=== PATIENT | female | born 1990 | race Two or more races ===

== ENCOUNTER → 2023-03-18 16:08 | Outpatient (CLI) | payer OTHER | END | disposition home or self-care (01) | LOC: PRENATAL 16:08 | PROVIDERS: ATTEND Obstetrics & Gynecology Maternal & Fetal Medicine | DX: O36.80X0 Pregnancy with inconclusive fetal viability, not applicable or unspecified (principal); Z36.82 Encounter for antenatal screening for nuchal translucency; Z36.9 Encounter for antenatal screening, unspecified; Z3A.14 14 weeks gestation of pregnancy ==

== ENCOUNTER 2023-05-15 11:16 | Outpatient (CLI) | payer OTHER | END 2023-05-15 11:18 | disposition home or self-care (01) | LOC: PRENATAL 11:16 | PROVIDERS: ATTEND Obstetrics & Gynecology Maternal & Fetal Medicine | DX: O26.879 Cervical shortening, unspecified trimester (principal); Z3A.22 22 weeks gestation of pregnancy ==

== ENCOUNTER 2023-05-25 15:04 | Outpatient (CLI) | payer OTHER | END 2023-05-25 15:05 | disposition home or self-care (01) | LOC: PRENATAL 15:04 | PROVIDERS: ATTEND Obstetrics & Gynecology Maternal & Fetal Medicine | DX: O26.849 Uterine size-date discrepancy, unspecified trimester (principal); O26.879 Cervical shortening, unspecified trimester; Z3A.24 24 weeks gestation of pregnancy ==

== ENCOUNTER 2023-06-25 14:40 | Outpatient (CLI) | payer OTHER | END 2023-06-25 14:41 | disposition home or self-care (01) | LOC: PRENATAL 14:40 | PROVIDERS: ATTEND Obstetrics & Gynecology Maternal & Fetal Medicine | DX: O26.849 Uterine size-date discrepancy, unspecified trimester (principal); O26.879 Cervical shortening, unspecified trimester; Z3A.28 28 weeks gestation of pregnancy ==

== ENCOUNTER → 2023-07-28 14:55 | Outpatient (CLI) | payer OTHER ==
[~2023-07-28 14:55] MED LIST: PRENATAL TABLE1 EAC1 PO
== END | disposition home or self-care (01) ==
LOC: PRENATAL 14:55
PROVIDERS: ATTEND Obstetrics & Gynecology Maternal & Fetal Medicine
DX: O26.849 Uterine size-date discrepancy, unspecified trimester (principal); O36.8199 Decreased fetal movements, unspecified trimester, other fetus; Z3A.33 33 weeks gestation of pregnancy

== ENCOUNTER 2023-08-03 10:49 | Inpatient (IN) | payer OTHER ==
[~2023-08-03] VITALS: Ht 152.4 cm; Wt 1.8 kg
[2023-08-03] MEDS ORDERED: BETAMETHASONE ACETATE,SOD PHOS 30 MG/5 ML ML ONE ×2 (11:50→11:53)
[2023-08-03] MEDS ORDERED: MAGNESIUM SULFATE IN WATER 0.04 GM/ML IV.SOLN IV ONE (11:58)
[2023-08-03] MEDS ORDERED: PRENATAL TABLE1 EAC1 PO (12:13)
[2023-08-03 12:32] LABS: HEMATOCRIT 39.9 % (36.0-45.00); HEMOGLOBIN 13.7 g/dL (12.0-15.00); MEAN CELL VOLUME 90.3 fL (80.00-100.00); MEAN CORPUSCULAR HGB CONC 34.3 g/dl (32.0-36.0); PLATELET COUNT 134 K/uL (150-450); RED BLOOD COUNT 4.42 M/uL (4.00-6.00); RED CELL DISTRIBUTION WIDTH 15.4 % (11.5-14.5)
[2023-08-03] MEDS ORDERED: BETAMETHASONE ACETATE,SOD PHOS 30 MG/5 ML ML IM STA (12:35)
[2023-08-03 12:45] LABS: INR < 0.93; PARTIAL THROMBOPLASTIN TIME 28.3 SECONDS (22.0-34.0); PROTHROMBIN TIME 9.4 SECONDS (9.0-11.5)
[2023-08-03] MEDS ORDERED: MAGNESIUM SULFATE IN WATER 500 ML IV SCH (12:45)
[2023-08-03 12:49] LABS: ALBUMIN 2.3 gm/dL (3.4-5.0); BILIRUBIN TOTAL 0.37 mg/dL (0.3-1.2); CALCIUM 8.5 mg/dL (8.5-10.1); CREATININE SERUM 0.85 mg/dL (0.55-1.02); GFR 78.01; GLOBULINA 3.1 G/DL (2.4-3.5); POTASSIUM 3.76 mEq/L (3.5-5.1); TOTAL PROTEIN 5.4 gm/dL (6.4-8.2)
[2023-08-03 12:52] LABS: URINE APPEARANCE Cloudy; URINE BILIRRUBIN Negative (NEGATIVE); URINE BLOOD Small; URINE COLOR Yellow; URINE GLUCOSE Negative (NEGATIVE); URINE NITRATE Negative; URINE UROBILINOGEN 0.2 E.U./dl
[2023-08-03 13:01] LABS: URINE RBC 8.1 uL (0.0-20.8); URINE WBC 293.4 uL (0.0-23.2)
[2023-08-03 13:08] LABS: URINE LEUKOCYTE Small
[2023-08-03 13:24] LABS: URINE BACTERIA > 9821.5 uL (0.0-1933); URINE EPITHELIAL CELLS > 201.7 uL (0.0-38.8); URINE PROTEIN 300 (NEGATIVE)
[2023-08-03 13:26] LABS: URINE CRYSTALS FEW /HPF
[2023-08-03] MEDS ORDERED: CEFAZOLIN SODIUM 1,000 MG VIAL IV SCH (17:00)
[2023-08-03] MEDS ORDERED: LABETALOL HCL 100 MG/20 ML ML ONE (20:46)
[2023-08-03] MEDS ORDERED: ACETAMINOPHEN 500 MG GEL..CAP PO ONE (20:48)
[2023-08-03] MEDS ORDERED: ACETAMINOPHEN 500 MG GEL..CAP PO PRN (21:00)
[2023-08-03] MEDS ORDERED: LABETALOL HCL 100 MG/20 ML ML IV ONE (21:00)
[2023-08-04] MEDS ORDERED: LABETALOL HCL 100 MG/20 ML ML ONE (10:41)
[2023-08-04] MEDS ORDERED: LABETALOL HCL 100 MG/20 ML ML IV PUSH ONE (10:45)
[2023-08-04] MEDS ORDERED: OXYTOCIN 10 UNITS/ML VIAL ONE (11:18)
[2023-08-04] MEDS ORDERED: ERYTHROMYCIN BASE 1 GM TUBE OP ONE ×2 (11:18→14:30)
[2023-08-04] MEDS ORDERED: BETAMETHASONE ACETATE,SOD PHOS 30 MG/5 ML ML IM ONE (12:00)
[2023-08-04] MEDS ORDERED: PROMETHAZINE HCL 50 MG/ML AMPUL IM PRN (12:45)
[2023-08-04] MEDS ORDERED: MEPERIDINE HCL/PF 50 MG/ML VIAL IM PRN (12:45)
[2023-08-04 13:26] LABS: ABG PH 7.254 (7.35-7.45); ABG pCO2 57.5 mmHg (35-45)
[2023-08-04 13:27] LABS: ABG PO2 8.9 mmHg (80-100); BASE EXCESS -3.3 mmol/l; BICARBONATE 24.9 mmol/l (23-25); SaO2 6.3 %
[2023-08-04 13:28] LABS: Tco2 26.7 mmol/l; o2 21 %
[2023-08-04] MEDS ORDERED: OXYTOCIN 10 UNITS/ML VIAL IV ONE (14:30)
[2023-08-04] MEDS ORDERED: MAGNESIUM SULFATE IN WATER 0.04 GM/ML IV.SOLN IV ONE (14:46)
[2023-08-04] MEDS ORDERED: CEFAZOLIN SODIUM 1,000 MG VIAL ONE (16:54)
[2023-08-04 17:23] LABS: HEMATOCRIT 38.3 % (36.0-45.00); HEMOGLOBIN 13.1 g/dL (12.0-15.00); MEAN CELL VOLUME 90.4 fL (80.00-100.00); MEAN CORPUSCULAR HEMOGLOBIN 30.8 pg (27.00-32.0); MEAN CORPUSCULAR HGB CONC 34.1 g/dl (32.0-36.0); PLATELET COUNT 158 K/uL (150-450); RED BLOOD COUNT 4.24 M/uL (4.00-6.00); RED CELL DISTRIBUTION WIDTH 15.9 % (11.5-14.5)
[2023-08-05] MEDS ORDERED: PROMETHAZINE HCL 25 MG/ML AMPUL ONE (00:05)
[2023-08-05] MEDS ORDERED: OxyCODONE HCL/APAP UD (PERCOCET) PO PRN (08:00)
[2023-08-05] MEDS ORDERED: DOCUSATE SODIUM 100MG CAP PO SCH (09:00)
[2023-08-05] MEDS ORDERED: SIMETHICONE 125 MG CAPSULE PO SCH (09:00)
[2023-08-05] MEDS ORDERED: LABETALOL HCL 200 MG TABLET PO SCH (09:00)
[2023-08-05] MEDS ORDERED: PNV,CALCIUM 72/IRON/FOLIC ACID 1 TAB TABLET PO SCH (09:00)
[2023-08-05] MEDS ORDERED: LABETALOL HCL 100 MG TABLET PO ONE ×3 (12:58→13:15)
[2023-08-05] MEDS ORDERED: LABETALOL HCL 300 MG TABLET PO SCH (21:00)
== END 2023-08-07 14:56 | disposition home or self-care (01) | DRG 788 ==
LOC: OB/GYN 10:49 → LDR 10:49 → O/R 08-04 13:01 → OB/GYN 08-04 13:27 → O/R 08-04 15:43 → LDR 08-04 18:27 → OB/GYN 08-05 10:00
PROVIDERS: ADMIT Obstetrics & Gynecology; ATTEND Obstetrics & Gynecology
PROC: BY4FZZZ Ultrasonography of Third Trimester, Single Fetus (ICD-10-PCS; 2023-08-03)
PROC: 4A1HXCZ Monitoring of Products of Conception, Cardiac Rate, External Approach (ICD-10-PCS; 2023-08-03)
PROC: 0UB90ZZ Excision of Uterus, Open Approach (ICD-10-PCS; 2023-08-04)
PROC: 10D00Z1 Extraction of Products of Conception, Low, Open Approach (ICD-10-PCS; principal; 2023-08-04 11:30)
DX: O14.14 Severe pre-eclampsia complicating childbirth (principal); O60.14X0 Preterm labor third trimester with preterm delivery third trimester, not applicable or unspecified; O36.8130 Decreased fetal movements, third trimester, not applicable or unspecified; Z3A.34 34 weeks gestation of pregnancy; Z37.0 Single live birth; Z20.822 Contact with and (suspected) exposure to COVID-19; O34.13 Maternal care for benign tumor of corpus uteri, third trimester; D25.9 Leiomyoma of uterus, unspecified